=== PATIENT | female | born 1955 | race Caucasian/White ===

== ENCOUNTER → 2022-04-30 | Outpatient (CLI) | payer MEDICARE, MEDICAID ==
[2022-04-30 18:42] LABS: URINE APPEARANCE CLEAR; URINE BILIRUBIN NEGATIVE (NEGATIVE); URINE BLOOD NEGATIVE (NEGATIVE); URINE COLOR YELLOW; URINE GLUCOSE NEGATIVE (NEGATIVE); URINE KETONE NEGATIVE (NEGATIVE); URINE LEUKOCYTE ESTERASE 1+ (NEGATIVE); URINE NITRATE NEGATIVE (NEGATIVE); URINE PROTEIN(semi-quant) NEGATIVE (NEGATIVE); URINE UROBILINOGEN NORMAL (NORMAL)
== END ==
LOC: LAB 17:44
PROVIDERS: Family Medicine
DX: R41.0 Disorientation, unspecified (principal)

== ENCOUNTER 2023-04-22 02:55 | Emergency (ER) | payer MEDICARE, MEDICAID ==
[~2023-04-22] VITALS: Wt 77.2 kg
[2023-04-22] MEDS ORDERED: NORVASC 10MG10 MG PO (03:13)
[2023-04-22] MEDS ORDERED: TYLENOL EXTRA500 M2 PO (03:14)
[2023-04-22] MEDS ORDERED: ATORVASTATIN CA40 MG PO (03:15)
[2023-04-22] MEDS ORDERED: VOLTAREN ARTHRI20 GM TP (03:18)
[2023-04-22] MEDS ORDERED: NEURONTIN300 MG/CAP PO (03:19)
[2023-04-22] MEDS ORDERED: LATANOPROST 2.2.5 ML OU (03:20)
[2023-04-22] MEDS ORDERED: MIRTAZAPINE7.5 M1 PO (03:21)
[2023-04-22] MEDS ORDERED: MEMANTINE HCL10 MG PO (03:22)
[2023-04-22] MEDS ORDERED: ALDACTONE 25MG25 MG PO (03:22)
[2023-04-22 03:46] LABS: BASO # 0.03 K/mm3 (0.02-0.10); EOS # 0.16 K/mm3 (0.04-0.40); EOS % 1.4 % (1.0-5.0); HEMATOCRIT 36.9 % (37.0-47.0); HEMOGLOBIN 11.4 g/dL (12.5-16.0); LYMPH# 2.71 K/mm3 (1.50-4.00); MEAN CELL VOLUME 102 fl (78-100); MEAN CORPUSCULAR HEMOGLOBIN 31 pg (27-31); MEAN CORPUSCULAR HGB CONC 31 g/dL (33-37); MEAN PLATELET VOLUME 9.5 fl (7.4-10.4); MONO # 0.99 K/mm3 (0.20-0.80); NEU # 7.59 K/mm3 (1.40-6.50); PLATELET COUNT 292 K/mm3 (130-400); RED BLOOD COUNT 3.63 M/mm3 (4.10-5.30); RED CELL DISTRIBUTION WIDTH 13.6 % (11.5-14.5); WHITE BLOOD COUNT 11.5 K/mm3 (4.8-10.8)
[2023-04-22 03:52] LABS: ALBUMIN 3.3 g/dL (3.4-4.8)
[2023-04-22 03:55] LABS: TOTAL PROTEIN 5.8 g/dL (6.2-8.1)
[2023-04-22 03:57] LABS: TOTAL BILIRUBIN 0.4 mg/dL (0.2-1.2)
[2023-04-22 04:34] LABS: URINE APPEARANCE HAZY; URINE BILIRUBIN NEGATIVE (NEGATIVE); URINE BLOOD NEGATIVE (NEGATIVE); URINE COLOR YELLOW; URINE GLUCOSE NEGATIVE (NEGATIVE); URINE KETONE NEGATIVE (NEGATIVE); URINE LEUKOCYTE ESTERASE 1+ (NEGATIVE); URINE NITRATE NEGATIVE (NEGATIVE); URINE PROTEIN(semi-quant) TRACE (NEGATIVE); URINE UROBILINOGEN NORMAL (NORMAL)
[2023-04-22] MEDS ORDERED: CEPHALEXIN500 M1 PO (04:42)
[2023-04-22 06:18] VITALS: BP 128/78
[2023-04-27] MEDS ORDERED: NEURONTIN300 M1 PO (14:44)
[2023-04-27] MEDS ORDERED: LIPITOR 40MG TA40 MG PO (14:45)
== END 2023-04-22 06:18 | disposition home or self-care (01) ==
LOC: ED 02:55
PROVIDERS: Nurse Practitioner
DX: L03.116 Cellulitis of left lower limb (principal); M25.551 Pain in right hip; W06.XXXA Fall from bed, initial encounter

== ENCOUNTER → 2023-06-21 | Outpatient (CLI) | payer MEDICARE, MEDICAID ==
[~2023-06-21] MED LIST: ALDACTONE 25MG25 MG PO; ANUSOL HC CREAM30 GM TOP; ATORVASTATIN CA40 MG PO; CEPHALEXIN500 M1 PO; DULCOLAX STOOL100 M1 PO; GOOD NEIGH1200 MG/15 PO; LATANOPROST 2.2.5 ML OU; LIPITOR 40MG TA40 MG PO; MEMANTINE HCL10 MG PO; MIRTAZAPINE7.5 M1 PO; NEURONTIN300 M1 PO; NEURONTIN300 MG/CAP PO; NORVASC 10MG10 MG PO; PANTOPRAZOLE SO40 MG PO; POLYETHYLE17 GM/Dose PO; TYLENOL EXTRA500 M2 PO; VOLTAREN ARTHRI20 GM TP; [UNRECOGNIZED DRUG - OTHER] TP
[2023-06-21 09:44] LABS: CALCIUM 9.5 mg/dL (8.3-10.5)
== END ==
LOC: LAB 09:25
PROVIDERS: Family Medicine
DX: E11.9 Type 2 diabetes mellitus without complications (principal); I50.9 Heart failure, unspecified; E78.2 Mixed hyperlipidemia

== ENCOUNTER → 2023-11-24 | Outpatient (REF) | payer MEDICARE, MEDICAID ==
[2023-11-24 17:42] LABS: URINE APPEARANCE SLIGHTLY CLOUDY (CLEAR); URINE BILIRUBIN NEGATIVE (NEGATIVE); URINE BLOOD TRACE-INTACT (NEGATIVE); URINE COLOR YELLOW (YELLOW); URINE GLUCOSE 2+ (NEGATIVE); URINE KETONE NEGATIVE (NEGATIVE); URINE NITRATE NEGATIVE (NEGATIVE); URINE PROTEIN(semi-quant) NEGATIVE (NEGATIVE)
[2023-11-24 17:43] LABS: URINE LEUKOCYTE ESTERASE 1+ (NEGATIVE)
[2023-11-24 17:44] LABS: URINE WBC 31-50 /hpf (0-3)
== END ==
LOC: LAB 15:37
PROVIDERS: Family Medicine
DX: N39.0 Urinary tract infection, site not specified (principal); F44.89 Other dissociative and conversion disorders

== ENCOUNTER → 2024-01-06 | Outpatient (CLI) | payer MEDICARE, MEDICAID ==
[2024-01-06 13:36] LABS: CALCIUM 9.1 mg/dL (8.3-10.5)
== END ==
LOC: LAB 13:11
PROVIDERS: Family Medicine
DX: I87.2 Venous insufficiency (chronic) (peripheral) (principal); E11.21 Type 2 diabetes mellitus with diabetic nephropathy; F41.9 Anxiety disorder, unspecified; G47.33 Obstructive sleep apnea (adult) (pediatric); K21.9 Gastro-esophageal reflux disease without esophagitis

== ENCOUNTER 2024-02-01 08:12 | Emergency (ER) | payer MEDICARE, MEDICAID ==
[~2024-02-01] VITALS: Ht 157.5 cm; Wt 98.2 kg
[2024-02-01] MEDS ORDERED: FUROSEMIDE40 MG (08:27)
[2024-02-01] MEDS ORDERED: METFORMIN ER500 MG PO (08:28)
[2024-02-01] MEDS ORDERED: MUPIROCIN2% TP (09:45)
[2024-02-01] MEDS ORDERED: CEPHALEXIN500 M2 PO (09:45)
[2024-02-01 10:10] VITALS: BP 129/90
== END 2024-02-01 09:55 ==
LOC: ED 08:12
DX: L03.211 Cellulitis of face (principal)

== ENCOUNTER 2024-06-01 15:57 | Emergency (ER) | payer MEDICARE, MEDICAID ==
[~2024-06-01] VITALS: Ht 165.1 cm; Wt 97.1 kg
[2024-06-01 16:23] LABS: CALCIUM 9.3 mg/dL (8.3-10.5)
[2024-06-01 16:45] VITALS: BP 107/62
== END 2024-06-01 16:45 | disposition home or self-care (01) ==
LOC: ED 15:57
PROVIDERS: Nurse Practitioner
DX: R79.9 Abnormal finding of blood chemistry, unspecified (principal)

== ENCOUNTER → 2024-06-01 | Outpatient (REF) | payer MEDICARE, MEDICAID ==
[~2024-06-01] MED LIST changes: +CEPHALEXIN500 M2 PO; +FUROSEMIDE40 MG; +METFORMIN ER500 MG PO; +MUPIROCIN2% TP
[2024-06-01 15:10] LABS: ALBUMIN 4.1 g/dL (3.4-4.8)
[2024-06-01 15:13] LABS: TOTAL PROTEIN 7.1 g/dL (6.2-8.1)
[2024-06-01 15:14] LABS: TOTAL BILIRUBIN 0.4 mg/dL (0.2-1.2)
[2024-06-01 15:24] LABS: CALCIUM 4.2 mg/dL (8.3-10.5)
== END ==
LOC: LAB 14:37
PROVIDERS: Family Medicine
DX: E11.9 Type 2 diabetes mellitus without complications (principal); I48.21 Permanent atrial fibrillation